=== PATIENT | female | born 1995 | race Caucasian/White ===

== ENCOUNTER 2020-01-22 17:46 | Emergency (ER) | payer MEDICAID ==
--- NOTE | 2020-01-22 18:35 | EDM.PDOC ---
ED HPI GENERAL MEDICAL PROBLEM - General Chief Complaint: Chest Pain Stated Complaint: CHEST PAINS Time Seen by Provider: 01/22/20 18:15 Source of Information: Reports: Patient, Family History Limitations: Reports: No Limitations - History of Present Illness INITIAL COMMENTS - FREE TEXT/NARRATIVE: 24-year-old female that has had anterior chest pain for the past 5 to 7 days, this is a chronic recurring issue for her. She has been seen twice in the last week, numerous studies and work-ups have been done and a diagnosis of musculoskeletal pain has been found. She is here for another opinion because she does not feel like anything was done or explained to her. I did review her medical records, she has had 2 chest x-rays, EKGs, numerous labs and her physical findings are typical of anterior chest pain or costochondritis. Her last ER visit she was given ketorolac and by discharge the pain was gone. She is not short of breath but it does hurt to breathe, she has no fever chills or cough. Onset: Unknown/Unsure (At least 7 days) Location: Reports: Chest (Anterior chest) Improves with: Reports: None Worsens with: Reports: Breathing, Movement Associated Symptoms: Reports: Other (Some persistent recurring nausea) Chest Pain Score (Numeric/FACES): 7 - Related Data Allergies Allergy/AdvReac Type Severity Reaction Status Date / Time No Known Allergies Allergy Verified 01/22/20 18:00 Home Meds: Home Meds Aspirin 81 mg PO DAILY 01/22/20 [History] Dapagliflozin Propanediol [Farxiga] 10 mg PO DAILY 01/22/20 [History] Exenatide Microspheres [Bydureon Pen] 2 mg SQ WEEKLY 01/22/20 [History] Ibuprofen 800 mg PO ASDIRECTED 01/22/20 [History] Montelukast [Singulair] 10 mg PO BEDTIME 01/22/20 [History] Ramelteon 8 mg PO BEDTIME 01/22/20 [History] Sertraline [Zoloft] 100 mg PO DAILY 01/22/20 [History] buPROPion [buPROPion XL] 300 mg PO DAILY 01/22/20 [History] metFORMIN [Glucophage] 1,000 mg PO BID 01/22/20 [History] traZODone 150 mg PO BEDTIME 01/22/20 [History] Past Medical History Endocrine/Metabolic History: Reports: Diabetes, Type II Social & Family History - Tobacco Use Smoking Status *Q: Never Smoker - Caffeine Use Caffeine Use: Reports: Soda - Recreational Drug Use Recreational Drug Use: No ED ROS GENERAL - Review of Systems Review Of Systems: See Below Constitutional: Denies: Fever, Chills, Malaise HEENT: Denies: Throat Pain Respiratory: Denies: Shortness of Breath, Cough Cardiovascular: Reports: Chest Pain. Denies: Dyspnea on Exertion, Palpitations GI/Abdominal: Reports: Nausea. Denies: Abdominal Pain, Vomiting Musculoskeletal: Denies: Neck Pain Skin: Reports: No Symptoms Neurological: Denies: Headache ED EXAM, GENERAL - Physical Exam Exam: See Below Exam Limited By: No Limitations General Appearance: Alert, No Apparent Distress Head: Atraumatic Neck: Supple, Non-Tender Respiratory/Chest: Lungs Clear, Other (She has reproducible pain to palpation of the left costochondral junction near the sternum) Cardiovascular: Regular Rate, Rhythm Neurological: Alert, Oriented Psychiatric: Normal Affect, Normal Mood Course - Vital Signs Last Recorded V/S: Last Vital Signs Temp 96.9 F 01/22/20 18:01 Pulse 105 H 01/22/20 18:01 Resp 20 01/22/20 18:01 BP 147/99 H 01/22/20 18:01 Pulse Ox 95 01/22/20 18:01 - Re-Assessments/Exams Free Text/Narrative Re-Assessment/Exam: 01/22/20 18:33 The physiology of costochondritis was explained to the patient, she will be given a trial of 5 days of ketorolac to take 3-4 times daily and can recheck in 5 days if not improving. She can return sooner if she develops new symptoms such as fever, increasing shortness of breath or cough. I am going to recommend an antacid while taking the Toradol. Departure - Departure Time of Disposition: 18:39 Disposition: Home, Self-Care 01 Clinical Impression: Costochondritis - Discharge Information Instructions: Costochondritis, [id number] Referrals: Camille Ramirez NP [Primary Care Provider] - Forms: ED Department Discharge Care Plan Goals: Take ketorolac every 4-6 hours over the next 5 days. Consider an antacid as well to protect her stomach while taking the medicine. Continue activity as tolerated, and recheck in 5 to 7 days if not improving satisfactorily or return sooner if worsening such as difficulty breathing, fever, or worsening pain despite treatment. Sepsis Event Note (ED) - Evaluation Sepsis Screening Result: No Definite Risk - Focused Exam Vital Signs: Vital Signs Temp Pulse Resp BP Pulse Ox 01/22/20 18:01 96.9 F 105 H 20 147/99 H 95
== END 2020-01-22 18:40 | disposition home or self-care (01) ==
LOC: JP.ED 17:46
DX: M94.0 Chondrocostal junction syndrome [Tietze] (principal); E11.9 Type 2 diabetes mellitus without complications; Z79.82 Long term (current) use of aspirin; Z79.84 Long term (current) use of oral hypoglycemic drugs; Z79.899 Other long term (current) drug therapy
CPT/HCPCS: 99283; 99284